=== PATIENT | female | born 1945 | race Caucasian/White ===

== ENCOUNTER 2024-08-05 16:48 | Emergency (ER) | payer OTHER, MEDICARE ==
[~2024-08-05] VITALS: Ht 157.5 cm; Wt 66.0 kg
[2024-08-05] MEDS ORDERED: TOPROL XL50 MG PO (17:45)
[2024-08-05] MEDS ORDERED: LOSARTAN POTASS25 MG PO (17:45)
[2024-08-05 18:00] VITALS: BP 146/76
[2024-08-05] MEDS ORDERED: KETOROLAC TROMETHAMINE 30 MG/ML SDV IM ONE (18:00)
[2024-08-05] MEDS ORDERED: ORPHENADRINE CITRATE 30 MG/ML AMP IM ONE (18:00)
[2024-08-05 18:15] VITALS: BP 161/75
[2024-08-05 19:03] VITALS: BP 154/81
[2024-08-05] MEDS ORDERED: NAPROXEN500 MG PO (19:35)
[2024-08-05] MEDS ORDERED: METHOCARBAMOL500 MG PO (19:35)
[2024-08-05 20:00] VITALS: BP 151/73
[2024-08-05 20:35] VITALS: BP 151/73
== END 2024-08-05 20:35 | disposition home or self-care (01) | DRG 552 ==
LOC: ED 16:48
DX: M54.6 Pain in thoracic spine (principal); I10 Essential (primary) hypertension; I48.91 Unspecified atrial fibrillation; V49.40XA Driver injured in collision with unspecified motor vehicles in traffic accident, initial encounter
CPT/HCPCS: J2360

== ENCOUNTER 2024-08-09 17:08 | Inpatient (IN) | payer MEDICARE ==
[~2024-08-09] VITALS: Ht 157.5 cm; Wt 77.0 kg
[2024-08-09] VITALS (55 sets, daily range): BP systolic 99–199; BP diastolic 57–121
[~2024-08-09 17:08] MED LIST: LOSARTAN POTASS25 MG PO; METHOCARBAMOL500 MG PO; NAPROXEN500 MG PO; TOPROL XL50 MG PO
--- NOTE | 2024-08-09 17:08 | NUR ---
PATIENT ARRIVED TO ER VIA EMS. PATIENT AWAKE, ALERT AND STABLE. NO DISTRESS NOTED. PHYSICIAN NOTIFIED.
[2024-08-09] MEDS ORDERED: IPRATROPIUM-Albuterol 0.5MG-2.5MG/3 ML NEB ONE ×2 (17:25)
[2024-08-09] MEDS ORDERED: AZITHROMYCIN 500 MG in SODIUM CHLORIDE 0.9% 500 ML IV ONE (17:25)
[2024-08-09] MEDS ORDERED: ACETAMINOPHEN 500 MG TAB PO ONE (17:25)
[2024-08-09] MEDS ORDERED: hydrALAZINE HCL 20 MG/ML VIAL(1 ML) IV ONE (17:25)
[2024-08-09] MEDS ORDERED: cefTRIAXone SODIUM 2 GM in SODIUM CHLORIDE 0.9% 100 ML IV ONE (17:25)
[2024-08-09] MEDS ORDERED: ALBUTEROL SULFATE 2.5 MG VIAL IN ONE (17:25)
--- NOTE | 2024-08-09 17:42 | NUR ---
PT PLACED ON O2 @ 2LPM AT THIS TIME DUE TO SATS AT 88% VIA PULSE OXIMETRY.
[2024-08-09 17:58] LABS: BASO% 0.3 % (0-3); EOS% 0.3 % (0-8); HEMOGLOBIN 14.4 g/dl (12.0-16.0); IMMATURE GRANULOCYTES 0.3 % (0.0-5.0); LYMPH% 10.9 % (15-41); MEAN CELL VOLUME 95.4 fL CALC (80.0-100.0); MEAN CORPUSCULAR HGB 31.2 pG CALC (26.0-32.0); MEAN CORPUSCULAR HGB CONC 32.7 g/dL CAL (32.0-36.0); MONO% 6.5 % (2-13); NEUT# 5.54 thou/uL (2.00-7.15); NEUT% 81.7 % (42-76); RED BLOOD COUNT 4.61 mill/uL (4.20-5.60); RED CELL DISTRI WIDTH 12.9 % (11.5-15.5)
[2024-08-09 18:04] LABS: ALBUMIN 4.7 g/dL (3.2-5.0); BILIRUBIN, TOTAL 1.8 mg/dL (0.02-1.3); CREATININE 0.5 mg/dL (0.5-1.0); POTASSIUM 3.9 mmol/l (3.5-5.1); TOTAL PROTEIN 8.3 g/dL (6.3-8.2)
--- NOTE | 2024-08-09 18:15 | NUR ---
ALL LAB ORDERS COLLECTED, PT RESTING AT THIS TIME.
[2024-08-09 18:24] LABS: URINE BLOOD DIPSTICK Moderate (NEGATIVE); URINE COLOR Yellow; URINE GLUCOSE - DIPSTICK Negative (NEGATIVE); URINE KETONE >=160 mg/dL (NEGATIVE); URINE LEUK ESTERASE Small (NEGATIVE); URINE NITRITE - DIPSTICK Negative (Negative); URINE PROTEIN - DIPSTICK >=300 mg/dL (NEG-TRACE); URINE SPECIFIC GRAVITY 1.025; URINE UROBILINOGEN - DIPSTICK 0.2 E.U./dL (0.2)
[2024-08-09] MEDS ORDERED: methylPREDNISolone SODIUM SUCC 125 MG/2 ML SDV IV ONE (18:25)
--- NOTE | 2024-08-09 18:29 | NUR ---
PT TO BE ADMITTED TO 270.
[2024-08-09 18:30] LABS: URINE RBC 0-2 RBC/hpf (0-5)
--- NOTE | 2024-08-09 18:30 | NUR ---
SBAR SENT TO MED SURG
[2024-08-09 18:31] LABS: URINE BACTERIA FEW hpf; URINE MUCUS FEW hpf (NONE-FEW); URINE SQUAMOUS EPITHELIAL CELL MODERATE EPI/hpf (0-FEW)
[2024-08-09] MEDS ORDERED: SODIUM CHLORIDE 0.9% 250 ML IV PRN ×2 (19:15→20:50)
[2024-08-09] MEDS ORDERED: DILTIAZEM HCL 125 MG in SODIUM CHLORIDE 0.9% 100 ML IV ONE (19:15)
[2024-08-09] MEDS ORDERED: dilTIAZem HCL 50 MG/10 ML SDV IV ONE (19:15)
--- NOTE | 2024-08-09 19:20 | NUR ---
PATIENT'S HR IS 193. HX OF AFIB. AUDIBLE WHEEZING. EKG DONE AT BEDSIDE AND IT IS AFIB RVR. ED MD AT BEDSIDE, GAVE VERBAL ORDER FOR CARDIZEM BOLUS 20MG. CONTACTED ADMITTING DR. SHIPLEY AND NOTIFIED HIM THAT DR. LIMON GAVE VERBAL ORDER FOR CARDIZEM 20MG BOLUS AND CARDIZEM DRIP. DR. SHIPLEY AGREED WITH TX AND STS HE WILL UPGRADE THE PT TO ICU.
[2024-08-09] MEDS ORDERED: METOPROLOL SUCCINATE 50 MG/TAB PO SCH (19:42)
[2024-08-09] MEDS ORDERED: ACETAMINOPHEN 325 MG/TAB PO PRN (19:45)
[2024-08-09] MEDS ORDERED: MAGNESIUM HYDROXIDE 30 ML UDC PO PRN (19:45)
[2024-08-09] MEDS ORDERED: Zaleplon 5 MG/CAP PO PRN (19:45)
[2024-08-09] MEDS ORDERED: SODIUM CHLORIDE 0.9% 1,000 ML IV PRN (19:45)
[2024-08-09] MEDS ORDERED: ENOXAPARIN SODIUM 80 MG/0.8 ML SYR SC SCH (20:00)
--- NOTE | 2024-08-09 20:02 | NUR ---
PATIENT ARRIVED TO ROOM 7 VIA STRETCHER.
[2024-08-09] MEDS ORDERED: DOXYCYCLINE HYCLATE 100 MG in SODIUM CHLORIDE 0.9% 100 ML IV SCH (20:05)
--- NOTE | 2024-08-09 20:44 | NUR ---
DR SHIPLEY NOTIFIED OF PATIENTS CURRENT STATUS. PATIENT CONTINUES IN AFIB RVR RATE OF 170'S PATIENT IS MAXED OUT ON CARDIZEM AND PO METOPROLOL HAS BEEN GIVEN. PATIENT HAVING 4-5 RUNS OF VTACH. VERBAL ORDER RECEIVED TO STOP CARDIZEM AND GIVE AMIODARONE BOLUS, FOLLOWED BY AMIODARONE GTT.
[2024-08-09] MEDS ORDERED: amioDARONE HCl 450 MG in SODIUM CHLORIDE 250 ML IV ONE (20:50)
--- NOTE | 2024-08-09 20:52 | NUR ---
CALL TO , ASKING TO VERIFY AMIODARONE.
[2024-08-09] MEDS ORDERED: amioDARONE HCl 450 MG in SODIUM CHLORIDE 250 ML IV PRN (21:05)
[2024-08-09] MEDS ORDERED: MAGNESIUM SULFATE HEPTAHYDRATE 50 ML IV SCH (21:45)
--- NOTE | 2024-08-09 21:50 | NUR ---
PATIENT CURRENTLY ON AMIODARONE, BOLUS STARTED AT 2110 AND GTT AFTER. PATIENT CONTINUES TO BE IN AFIB RVR RATE OF 160'S. PATIENT HAS A PACEMAKER, UNSURE OF REASON, NO PACER SPIKES NOTED. DR CONDE NOTIFIED. ORDER RECEIED FOR 5MG OF IV METOPROLOL AND MAGNESIUM INFUSION.
[2024-08-09] MEDS ORDERED: METOPROLOL TARTRATE 5 MG/5 ML VIAL IV SCH (22:15)
--- NOTE | 2024-08-09 22:39 | NUR ---
RECORDS REQUEST FAXED TO [facility]. REQUESTING INFORMATION REARDING PATIENTS PACEMAKER.
--- NOTE | 2024-08-09 23:33 | NUR ---
PATIENT APPEARS TO BE IN SR RATE OF 80'S. PATIENT CONVERTED AT 2330. DR CONDE NOTIFIED AND EKG OBTAINED.
[2024-08-10] VITALS (59 sets, daily range): BP systolic 94–183; BP diastolic 51–112
[2024-08-10] MEDS ORDERED: LEVALBUTEROL HCL 1.25 MG/3 ML VIAL NEB SCH (01:00)
--- NOTE | 2024-08-10 03:35 | NUR ---
AMIODARONE GTT SLOWED TO 0.5MG/MINUTE. PATIENT TOLERATING WELL. PATIENT PACED RATE OF 60.
--- NOTE | 2024-08-10 05:14 | NUR ---
LAB AT BEDSIDE OBTAINING MORNING LABS.
[2024-08-10 05:45] LABS: CHOLESTEROL HDL RATIO 3.9 (<4.4 (CALC)); MAGNESIUM 2.4 mg/dL (1.6-2.3)
[2024-08-10] MEDS ORDERED: methylPREDNISolone Sod Succ 40 MG/ML SDV IV SCH (06:00)
--- NOTE | 2024-08-10 06:05 | NUR ---
RECORDS REQUEST FAXED TO [facility] AT
[2024-08-10] MEDS ORDERED: DOXYCYCLINE HYCLATE 100 MG in SODIUM CHLORIDE 0.9% 100 ML IV SCH (08:00)
--- NOTE | 2024-08-10 09:15 | NUR ---
Patient resting in bed and eating breakfast. Continues on Amiodarone drip. No chest pain noted.
--- NOTE | 2024-08-10 10:00 | NUR ---
Patient's blood presure is 172/89. Notified Dr. Szymanski. Denies chest pain. Patient also requested cough medicine. Made all above aware.
--- NOTE | 2024-08-10 11:12 | NUR ---
Spoke with Dr. Szymanski in regards to cough nd hypertension. New orders recieved for Hydralazine and Robitussin.
[2024-08-10] MEDS ORDERED: guaiFENesin 200 MG/10 ML UDC PO PRN (11:25)
[2024-08-10] MEDS ORDERED: hydrALAZINE HCL 20 MG/ML VIAL(1 ML) IV PRN (11:25)
--- NOTE | 2024-08-10 12:00 | NUR ---
Patient's blood pressure has decreased. No chest pain noted.
--- NOTE | 2024-08-10 14:00 | NUR ---
REPORT RECEIVED FROM MORNING NURSE. CARE OF PT ASSUMED. PT IN GOOD CONDITION AT THIS TIME. NSR ON MONITOR. ALL NEEDS MET.
--- NOTE | 2024-08-10 15:24 | NUR ---
TELE-CARDIOLOGY CONSULT COMPLETED. PER MITZY URBANO TO TURN OFF AMIODARONE GTT AT THIS TIME.ALL PT QUESTIONS ANSWERED.
--- NOTE | 2024-08-10 19:30 | NUR ---
RECD PT FROM DAYSHIFT RN VIA BSSR. PT IS AAOX4 ABLE TO STAND, TURN AND PIVOT TO BS WHEN NEEDED. INTERMITTENT USE OF PUREWICK REQUESTED. ASSMT COMPLETED. DENIES PAIN, SOB OR COMPLAINTS AT THIS TIME. ASSIST TO REPOSITION REQUESTED. DEMONSTRATED UNDERSTANDING OF CALL LIGHT - CALL LIGHT REPLACED D/T REMOTE FOR TV INOPERABLE. REPLACEMENT VERIFIED OPERATIONAL. FALL PRECAUTIONS IN PLACE, CALL LIGHT WITHIN REACH
[2024-08-10] MEDS ORDERED: LOSARTAN Potassium 25 MG/TAB PO SCH (21:31)
--- NOTE | 2024-08-10 23:00 | NUR ---
ASSIST TO BSC REQUESTED. DENIES COMPLAINT OR SOB AT THIS TIME. ASSISTED TO RETURN TO BED WITH REPOSITIONING NEEDED. PT REPORTS SHE IS COMFORTABLE WITH NO NEEDS AT THIS TIME. RESTING CALMLY WITH CALL LIGHT WITHIN REACH
[2024-08-11] VITALS (19 sets, daily range): BP systolic 133–191; BP diastolic 68–92
--- NOTE | 2024-08-11 01:47 | NUR ---
PT OBSERVED SLEEPING COMFORABLY WITH NO SIGNS OF DISTRESS OR SOB NOTED. NO NEEDS AT THIS TIME. RESTING COMFORTABLY WITH CALL LIGHT IN REACH AND FALL PRECAUTIONS IN PLACE
--- NOTE | 2024-08-11 03:30 | NUR ---
PT OBSERVED SLEEPING PEACEFULLY. MAINTAINS O2 SATURATIONS > 90% ON 3LO2NC. FALL PRECAUTIONS REMAIN IN PLACE. CALL LIGHT WITHIN REACH
--- NOTE | 2024-08-11 05:38 | NUR ---
REAPPLICATION OF TELE LEADS AND PULSE OX D/T PT REMOVAL. ASSIST TO REPOSITION. DENIES SOB, CP. VSS. PT REMAINS STABLE AT THIS TIME WITH NO S/S OF DISTRESS RESTING CALMLY WITH CALL LIGHT WITHIN REACH
[2024-08-11 05:54] LABS: BASO% 0.1 % (0-3); HEMATOCRIT 38.8 % (37.0-47.0); HEMOGLOBIN 13.1 g/dl (12.0-16.0); IMMATURE GRANULOCYTES 0.5 % (0.0-5.0); LYMPH% 11.6 % (15-41); MEAN CELL VOLUME 93.5 fL CALC (80.0-100.0); MEAN CORPUSCULAR HGB 31.6 pG CALC (26.0-32.0); MEAN CORPUSCULAR HGB CONC 33.8 g/dL CAL (32.0-36.0); MONO% 3.4 % (2-13); NEUT# 8.15 thou/uL (2.00-7.15); NEUT% 84.4 % (42-76); RED BLOOD COUNT 4.15 mill/uL (4.20-5.60)
[2024-08-11] MEDS ORDERED: NAPROXEN 250 MG/TAB PO PRN (06:00)
[2024-08-11 06:02] LABS: CREATININE 0.4 mg/dL (0.5-1.0); MAGNESIUM 2.1 mg/dL (1.6-2.3); POTASSIUM 3.2 mmol/l (3.5-5.1)
[2024-08-11 06:05] LABS: TOTAL PROTEIN 6.6 g/dL (6.3-8.2)
--- NOTE | 2024-08-11 06:05 | NUR ---
PT CONTINUES TO REMAIN STABLE RESTING COMFORTABLY WITH CALL LIGHT WITHIN REACH
[2024-08-11 06:06] LABS: ALBUMIN 3.6 g/dL (3.2-5.0)
--- NOTE | 2024-08-11 07:30 | NUR ---
PT LAYING IN BED WITH EYES OPEN. ASSISTED BOOSTING PT UP IN BED WITH MINIMAL ASSIST. PT SHOWS NO S/S OF DISTRESS AT THIS TIME. COMPLETED SHIFT ASSESSMENT. PT RESP IS EVEN AND UNLABORED. WHEEZING SOUNDS IN ALL LUNG [place]. NS1,S2 HEART SOUNDS. WEAK PEDAL AND WEAK RADIAL PULSES. ACTIVE BOWEL SOUNDS IN ALL 4. SAFETY PRECAUTIONS IN PLACE. BED IS IN THE LOWEST POSITION AND CALL LIGHT WITHIN REACH. PT IS NOW EATING BREAKFAST AT THIS TIME.
--- NOTE | 2024-08-11 12:00 | NUR ---
PT IS SITTING UP IN BED EATING LUNCH. PT IS AXO X3 AT THIS TIME. PT AMBULATED TO BSC WITH MINIMAL ASSIST AND HAD A LOOSE BM. PT RECEIVED NEW LINEN. RESP IS EVEN AND UNLABORED ON ROOM AIR. PT HAS NO S/S OF DISTRESS AT THIS TIME. BED IN THE LOWEST POSITION AND CALL LIGHT WITHIN REAACH.
[2024-08-11] MEDS ORDERED: IPRATROPIUM-Albuterol 0.5MG-2.5MG/3 ML IN SCH (13:00)
--- NOTE | 2024-08-11 16:00 | NUR ---
PT IS SITTING UP IN BED WITH EYES CLOSED. PT ARROUSES EASILY TO VERBAL STIMULATION. NO S/S OF DISTRESS AT THIS TIME. RESP EVEN AND UNLABORED ON ROOM AIR. PUREWICK IN PLACE. 20G LAC IN PLACE. SAFETY PRECAUTIONS IN PLACE. BED IN THE LOWEST POSITION, SIDE RAILS UP, AND CALL RENAE WITHIN REACH.
--- NOTE | 2024-08-11 20:06 | NUR ---
ASSESSMENT COMPLETED. PT COMPLAINS OF PAIN IN BACK, REQUESTED NAPROXEN SODIUM FOR PAIN RELIEF. PROVIDER NOTIFIED. PT IS ALERT AND ORIETATED, ANSWERS QUESTIONS APPROP. NO SOB NOTED. PT ASSISTED WITH READJUSTMENT IN BED. EDUCATION PT ON POSITIONING TO ASSIST BREATHING. BP IS ELEVATED. CALL LIGHT IS IN REACH
--- NOTE | 2024-08-11 22:14 | NUR ---
NO CHANGES NOTED. PT ASSISTED W/ REPOSITIONING. HYDRALAZINE GIVEN FOR ELEVATED BP.
[2024-08-11] MEDS ORDERED: CLARIFY DOSE PO PRN (22:15)
[2024-08-11] MEDS ORDERED: NAPROXEN 250 MG/TAB PO SCH (23:30)
[2024-08-12] VITALS (18 sets, daily range): BP systolic 129–185; BP diastolic 67–102
--- NOTE | 2024-08-12 00:25 | NUR ---
PT IS RESTFUL. IV IN R WIRST FOUND DISLODGED, REMOVED CATHETER INTACT. PT GIVEN SLEEPING PILL PER ORDER. PT HAS NO COMPLAINTS AT THIS TIME. V/S STABLE. CALL LIGHT IN REACH
--- NOTE | 2024-08-12 02:33 | NUR ---
PT IS RESTING COMFORTABLY. PT WAS PLACED ON 2 L O2 NC BY RT. O2 SAT IS 93%. NO COMPLAINTS/NEEDS AT THIS TIME. V/S STABLE. CALL LIGHT IN REACH
[2024-08-12 05:49] LABS: HEMATOCRIT 40.8 % (37.0-47.0); HEMOGLOBIN 13.6 g/dl (12.0-16.0); MEAN CELL VOLUME 94.7 fL CALC (80.0-100.0); MEAN CORPUSCULAR HGB 31.6 pG CALC (26.0-32.0); MEAN CORPUSCULAR HGB CONC 33.3 g/dL CAL (32.0-36.0); RED BLOOD COUNT 4.31 mill/uL (4.20-5.60)
--- NOTE | 2024-08-12 05:54 | NUR ---
PT UP TO BSC FOR A SMALL BM. PT LINENS CHANGED. NEW PW PLACED. 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 MARIEL CARE GIVEN. PT STATED HAS HAD FOR A LONG TIME. V/S STABLE. 02 SAT DROPPED TO 80'S WHEN PT WAS UP TO BSC, NO SOB NOTED. PT ON 2 L NC, SAT IS 91%.
[2024-08-12 06:13] LABS: ALBUMIN 3.6 g/dL (3.2-5.0); BILIRUBIN, TOTAL 1.2 mg/dL (0.02-1.3); CREATININE 0.5 mg/dL (0.5-1.0); POTASSIUM 3.1 mmol/l (3.5-5.1); TOTAL PROTEIN 6.7 g/dL (6.3-8.2)
--- NOTE | 2024-08-12 07:30 | NUR ---
Report received from sign board erector nurse. Patient is resting in bed, denies any pain. A&Ox4, on 2L NC, AFIB on tele monitor, BP elevated. Will give PRN meds. All needs addressed at this time, call light within reach.
[2024-08-12] MEDS ORDERED: POTASSIUM CHLORIDE 20 MEQ/TAB PO SCH (09:00)
[2024-08-12] MEDS ORDERED: amLODIPine BESYLATE 5 MG/TAB PO SCH (09:00)
[2024-08-12] MEDS ORDERED: LOSARTAN Potassium 50 MG/TAB PO SCH (09:00)
--- NOTE | 2024-08-12 11:30 | NUR ---
Patient asked to go see her who is also in ICU. Got wheelchair for patient and took her to his room. She will be eating lunch with him in his room.
--- NOTE | 2024-08-12 16:00 | NUR ---
Patient is sitting in wheelchair in husbands room who is also in ICU. Patient is A&Ox4, on room air, VS WNL. Assessment unchanged. All needs addressed, call light within reach.
--- NOTE | 2024-08-12 20:00 | NUR ---
[facility] lying in bed. VS shows hypertension SBP 180. Hydralazine PRN given. Patient request to ambulate. Patient oriented to be in bed given high blood presure and medication regimen. Patient verbalizes understanding and ask medicine to help her sleep. PRN Sonata in the MAR given. Current patient's IV leaking. New IV started, two attempted taken by this nurse. Patient request fom purewick because "I leak when I cough and I have been coughing a lot". Patient informed that due to her prolapse organ, she is not suitable for the external catether due to the risk of injury. Brief was provided and applied. Patient has no other request at this time. Call light within reach. Bed alarm on
[2024-08-12] MEDS ORDERED: methylPREDNISolone Sod Succ 40 MG/ML SDV IV SCH (21:00)
--- NOTE | 2024-08-12 22:00 | NUR ---
Patient sleeping. SBP improved. O2 nasal canulla applied by RT. Bed alarm on. Call light within reach
[2024-08-13] VITALS (11 sets, daily range): BP systolic 126–174; BP diastolic 64–121
--- NOTE | 2024-08-13 00:28 | NUR ---
Patient sleeping. No changes in reassessment. VS stable. Call light within reach
--- NOTE | 2024-08-13 04:34 | NUR ---
Patient sleeping. Remains hypertensive but controlled. No signs of distress. Call light within reach. Bed alarm on
--- NOTE | 2024-08-13 06:35 | NUR ---
Patient assisted to BSC for BM. No complains at this time. Patient assisted in returning to bed. Bed alarm on. Call light within reach
--- NOTE | 2024-08-13 08:00 | NUR ---
PT IS SITTING UP IN BED, WATCHING TV. CALL LIGHT IN REACH.
[2024-08-13] MEDS ORDERED: OMNICEF300 MG PO (08:17)
[2024-08-13] MEDS ORDERED: PREDNISONE10 MG PO (08:17)
[2024-08-13] MEDS ORDERED: AMLODIPINE BESYL5 MG PO (08:17)
[2024-08-13] MEDS ORDERED: BENZONATATE200 MG PO (08:18)
--- NOTE | 2024-08-13 10:01 | NUR ---
PT IS SITTING UP IN BED, CALL LIGHT IN REACH.
--- NOTE | 2024-08-13 11:30 | NUR ---
Discharge instructions given. Patient verbalizes understanding of same. Discharged in stable condition via Wheelchair to Home with staff. All belongings sent with pt. Telemetry and IV removed.
== END 2024-08-13 11:30 | disposition home or self-care (01) | DRG 193 ==
LOC: ED 17:08 → ED-I 18:20 → ED 18:25 → MS2 18:25 → ICU 18:25
PROVIDERS: Family Medicine; Nurse Practitioner Family; ADMIT Internal Medicine; ATTEND Internal Medicine
DX: J18.9 Pneumonia, unspecified organism (principal); J96.01 Acute respiratory failure with hypoxia; N39.0 Urinary tract infection, site not specified; B96.4 Proteus (mirabilis) (morganii) as the cause of diseases classified elsewhere; J45.909 Unspecified asthma, uncomplicated; I49.5 Sick sinus syndrome; I48.91 Unspecified atrial fibrillation; I10 Essential (primary) hypertension; Z95.0 Presence of cardiac pacemaker; Z87.820 Personal history of traumatic brain injury; Z20.822 Contact with and (suspected) exposure to COVID-19
CPT/HCPCS: J0282; J0360; J0456; J0696; J1650; J3475

== ENCOUNTER 2024-08-16 14:00 | Observation (INO) | payer OTHER, MEDICARE ==
[~2024-08-16] VITALS: Ht 157.5 cm; Wt 66.0 kg
[2024-08-16] VITALS (9 sets, daily range): BP systolic 122–142; BP diastolic 64–94
[~2024-08-16 14:00] MED LIST changes: +AMLODIPINE BESYL5 MG PO; +BENZONATATE200 MG PO; +OMNICEF300 MG PO; +PREDNISONE10 MG PO
[2024-08-16] MEDS ORDERED: MORPHINE SULFATE 4 MG/ML VIAL IV ONE (14:20)
[2024-08-16] MEDS ORDERED: ONDANSETRON HCl 4 MG/2 ML SDV IV ONE (14:20)
[2024-08-16] MEDS ORDERED: ASPIRIN 81 MG/TAB PO ONE (14:35)
[2024-08-16 14:36] LABS: BASO% 0.1 % (0-3); EOS% 0.4 % (0-8); HEMATOCRIT 45.4 % (37.0-47.0); HEMOGLOBIN 14.9 g/dl (12.0-16.0); IMMATURE GRANULOCYTES 1.2 % (0.0-5.0); LYMPH% 19.4 % (15-41); MEAN CELL VOLUME 95.4 fL CALC (80.0-100.0); MEAN CORPUSCULAR HGB 31.3 pG CALC (26.0-32.0); MEAN CORPUSCULAR HGB CONC 32.8 g/dL CAL (32.0-36.0); MONO% 5.6 % (2-13); NEUT# 9.98 thou/uL (2.00-7.15); NEUT% 73.3 % (42-76); RED BLOOD COUNT 4.76 mill/uL (4.20-5.60); RED CELL DISTRI WIDTH 12.5 % (11.5-15.5)
[2024-08-16 14:47] LABS: ALBUMIN 3.8 g/dL (3.2-5.0); BILIRUBIN, TOTAL 1.9 mg/dL (0.02-1.3); CREATININE 0.6 mg/dL (0.5-1.0); TOTAL PROTEIN 6.9 g/dL (6.3-8.2)
[2024-08-16] MEDS ORDERED: POTASSIUM CHLORIDE 20 MEQ/TAB PO ONE (16:35)
[2024-08-16 19:25] LABS: URINE BLOOD DIPSTICK Negative (NEGATIVE); URINE GLUCOSE - DIPSTICK Negative (NEGATIVE); URINE KETONE 15 mg/dL (NEGATIVE); URINE LEUK ESTERASE Negative (NEGATIVE); URINE NITRITE - DIPSTICK Negative (Negative); URINE PH 5.5 (4.5-8.0); URINE PROTEIN - DIPSTICK 100 mg/dL (NEG-TRACE); URINE SPECIFIC GRAVITY 1.025; URINE UROBILINOGEN - DIPSTICK 0.2 E.U./dL (0.2)
[2024-08-16 19:27] LABS: URINE COLOR Amber
[2024-08-16 19:31] LABS: URINE BACTERIA FEW hpf; URINE MUCUS MODERATE hpf (NONE-FEW); URINE SQUAMOUS EPITHELIAL CELL MANY EPI/hpf (0-FEW); URINE WBC 0-2 WBC/hpf (0-5)
[2024-08-16 19:32] LABS: URINE CALCIUM OXALATE CRYSTALS MODERATE lpf; URINE HYALINE CAST FEW lpf (NONE-RARE)
[2024-08-16] MEDS ORDERED: MELATONIN 3 MG/TAB PO PRN (20:55)
[2024-08-16] MEDS ORDERED: ONDANSETRON 4 MG/TAB ODT SL PRN (20:55)
[2024-08-16] MEDS ORDERED: Polyethylene Glycol 3350 17 GM/PKT PO PRN (20:55)
[2024-08-16] MEDS ORDERED: ACETAMINOPHEN 325 MG/TAB PO PRN (20:55)
[2024-08-16] MEDS ORDERED: oxyCODONE HCL 5 MG/TAB PO PRN (20:55)
[2024-08-16] MEDS ORDERED: ENOXAPARIN SODIUM 40 MG/0.4 ML SYR SC SCH (21:00)
[2024-08-16] MEDS ORDERED: ATORVASTATIN CALCIUM 40 MG/TAB PO SCH (21:00)
[2024-08-16] MEDS ORDERED: IPRATROPIUM-Albuterol 0.5MG-2.5MG/3 ML IN PRN (21:00)
[2024-08-16] MEDS ORDERED: hydrALAZINE HCL 20 MG/ML VIAL(1 ML) IV PRN (21:00)
[2024-08-16] MEDS ORDERED: NITROGLYCERIN 0.4 MG/TAB SL PRN (21:00)
[2024-08-16 21:24] LABS: CHOLESTEROL HDL RATIO 3.6 (<4.4 (CALC))
[2024-08-16 21:55] LABS: TSH, 3RD GENERATION 2.25 uIU/mL (0.47 - 4.68)
[2024-08-17 04:00] VITALS: BP 144/80
[2024-08-17 05:16] VITALS: BP 144/80
[2024-08-17 05:17] LABS: ALBUMIN 3.3 g/dL (3.2-5.0); BILIRUBIN, TOTAL 1.3 mg/dL (0.02-1.3); CREATININE 0.4 mg/dL (0.5-1.0); MAGNESIUM 2.1 mg/dL (1.6-2.3); POTASSIUM 3.4 mmol/l (3.5-5.1); TOTAL PROTEIN 6.1 g/dL (6.3-8.2)
[2024-08-17 05:42] LABS: BASO% 0.1 % (0-3); EOS% 1.2 % (0-8); HEMATOCRIT 42.4 % (37.0-47.0); IMMATURE GRANULOCYTES 1.1 % (0.0-5.0); LYMPH% 25.7 % (15-41); MEAN CELL VOLUME 95.3 fL CALC (80.0-100.0); MEAN CORPUSCULAR HGB 31.5 pG CALC (26.0-32.0); MONO% 6.6 % (2-13); NEUT# 8.06 thou/uL (2.00-7.15); NEUT% 65.3 % (42-76); RED BLOOD COUNT 4.45 mill/uL (4.20-5.60); RED CELL DISTRI WIDTH 12.6 % (11.5-15.5)
[2024-08-17 07:00] VITALS: BP 146/78
[2024-08-17] MEDS ORDERED: amLODIPine BESYLATE 5 MG/TAB PO SCH (09:00)
[2024-08-17] MEDS ORDERED: METOPROLOL SUCCINATE 50 MG/TAB PO SCH (09:00)
[2024-08-17] MEDS ORDERED: TRAMADOL HYDROC50 M1 PO (10:36)
[2024-08-17 11:00] VITALS: BP 124/61
== END 2024-08-17 12:06 | disposition home or self-care (01) | DRG 313 ==
LOC: ED 14:00 → ED-I 18:44 → ED 21:37 → MS2 21:38
PROVIDERS: Family Medicine; ADMIT Internal Medicine; ATTEND Internal Medicine
DX: R07.89 Other chest pain (principal); I10 Essential (primary) hypertension; I48.0 Paroxysmal atrial fibrillation; E78.5 Hyperlipidemia, unspecified; Z95.5 Presence of coronary angioplasty implant and graft; Z87.820 Personal history of traumatic brain injury; Z95.0 Presence of cardiac pacemaker; Z82.49 Family history of ischemic heart disease and other diseases of the circulatory system
CPT/HCPCS: G0378; J1650; J2405